=== PATIENT | female | born 1960 | race Caucasian/White ===

== ENCOUNTER → 2017-08-19 | Outpatient (CLI) | payer SELFPAY ==
[~2017-08-19] MED LIST: ATARAX25 MG PO; CIPROFLOXACIN500 MG PO; PAROXETINE20 MG PO; PREDNISONE20 MG PO; PRILOSEC20 M1 PO; VICODIN ES 7501 TAB PO
== END | disposition home or self-care (01) ==
LOC: ORTHO 00:49
DX: M25.562 Pain in left knee (principal)

== ENCOUNTER → 2017-09-10 | Outpatient (CLI) | payer BC | END | disposition home or self-care (01) | LOC: ORTHO 03:24 | DX: M16.0 Bilateral primary osteoarthritis of hip (principal); E11.9 Type 2 diabetes mellitus without complications ==

== ENCOUNTER 2018-04-22 20:13 | Emergency (ER) | payer BC ==
[~2018-04-22] VITALS: Wt 90.7 kg
[2018-04-22 20:56] LABS: BASO % 0.4 % (0.0-1.0); HEMATOCRIT 40.8 % (37.0-47.0); LYMPH # 2.2 10*3/uL (1.3-4.4); LYMPH % 19.9 % (27.0-41.0); MEAN CELL VOLUME 92.5 fl (81.0-99.0); MEAN CORPUSCULAR HGB 29.5 pg (27.0-31.0); MEAN CORPUSCULAR HGB CONC 31.9 g/dl (33.0-37.0); MEAN PLATELET VOLUME 10.3 fl (9.6-12.3); MONO # 0.6 10*3/uL (0.1-1.0); MONO % 5.4 % (3.0-9.0); NEUT # 8.3 10*3/uL (2.3-7.9); NEUT % 73.9 % (47.0-73.0); PLATELET COUNT AUTOMATED 266 10*3/uL (130-400); RED BLOOD COUNT 4.41 10*6/uL (4.10-5.10); RED CELL DISTRI WIDTH 13.1 % (0-14.5); WHITE BLOOD COUNT 11.2 10*3/uL (4.8-10.8)
[2018-04-22 21:10] LABS: ALBUMIN 3.6 gm/dl (3.1-4.5); ALKALINE PHOSPHATASE 97 U/L (45-117); BUN 19 mg/dl (7-24); CHLORIDE 107 mmol/L (98-107); CREATININE 1.07 mg/dL (0.55-1.02); SGOT/AST 22 IU/L (3-35); SGPT/ALT 23 U/L (12-78); SODIUM 143 mmol/L (136-145); TOTAL PROTEIN 7.1 gm/dL (6.4-8.2)
[2018-04-22 21:47] LABS: BILIRUBIN NEGATIVE (NEGATIVE); BLOOD 3+ (NEGATIVE); CLARITY SL CLOUDY (CLEAR); COLOR YELLOW (YELLOW); GLUCOSE NEGATIVE (NEGATIVE); KETONE NEGATIVE (NEGATIVE); LEUKO ESTERASE NEGATIVE (NEGATIVE); NITRITE NEGATIVE (NEGATIVE); UROBILINOGEN 0.2 E.U./dl (0.2-1.0)
[2018-04-22 21:52] LABS: EPITHELIAL CELLS 0-2; RBC 31-40 rbc/hpf (0-2); WBC 0-2 wbc/hpf (0-5)
[2018-04-22] MEDS ORDERED: NORCO 5-325 TA1 EACH PO (22:10)
== END 2018-04-22 22:20 | disposition home or self-care (01) ==
LOC: ED 20:13
PROVIDERS: Physician Assistant
DX: N20.0 Calculus of kidney (principal); N23 Unspecified renal colic; R19.7 Diarrhea, unspecified; Z90.49 Acquired absence of other specified parts of digestive tract; Z98.890 Other specified postprocedural states; Z79.899 Other long term (current) drug therapy

== ENCOUNTER → 2018-07-20 | Outpatient (CLI) | payer BC ==
[~2018-07-20] MED LIST changes: +NORCO 5-325 TA1 EACH PO
== END | disposition home or self-care (01) ==
LOC: RAD 13:19
DX: M19.011 Primary osteoarthritis, right shoulder (principal)

== ENCOUNTER → 2018-07-26 | Outpatient (CLI) | payer BC | END | disposition home or self-care (01) | LOC: RAD 10:25 | DX: M54.2 Cervicalgia (principal) ==

== ENCOUNTER 2018-08-31 15:57 | Emergency (ER) | payer BC ==
[~2018-08-31] VITALS: Ht 149.8 cm; Wt 93.0 kg
== END 2018-08-31 17:45 | disposition home or self-care (01) ==
LOC: ED 15:57
DX: S90.32XA Contusion of left foot, initial encounter (principal); Z79.899 Other long term (current) drug therapy; W54.1XXA Struck by dog, initial encounter; Y93.89 Activity, other specified; Y92.89 Other specified places as the place of occurrence of the external cause; Y99.8 Other external cause status

== ENCOUNTER → 2018-09-01 | Outpatient (CLI) | payer BC | END | disposition home or self-care (01) | LOC: MRI 08:57 | DX: M24.111 Other articular cartilage disorders, right shoulder (principal) ==

== ENCOUNTER → 2018-11-16 | Outpatient (CLI) | payer BC ==
[~2018-11-16] MED LIST changes: +ASPIRIN ADULT L81 M1 PO; +CEREFOLIN CAPL1 EACH PO; +GLUCOPHAGE500 M1 PO; +MOBIC15 MG PO; +MULTIPLE VITAM1 EAC1 PO; +OMEGA 3 500 SO1 EACH PO; +PERCOCET 5-3251 EACH PO; +TESSALON PERLE100 MG PO; +VITAMIN D35000 UNIT/ PO; +ZANTAC 150150 MG PO; +ZOFRAN4 MG PO
[2018-11-16 14:25] LABS: BILIRUBIN NEGATIVE (NEGATIVE); BLOOD 3+ (NEGATIVE); CLARITY SL CLOUDY (CLEAR); COLOR YELLOW (YELLOW); GLUCOSE NEGATIVE (NEGATIVE); KETONE NEGATIVE (NEGATIVE); LEUKO ESTERASE NEGATIVE (NEGATIVE); NITRITE NEGATIVE (NEGATIVE); PH 5.5 (5.0-9.0); SPECIFIC GRAVITY 1.025 (1.005-1.030); UROBILINOGEN 0.2 E.U./dl (0.2-1.0)
[2018-11-16 14:49] LABS: RBC TNTC rbc/hpf (0-2)
[2018-11-16 14:50] LABS: BACTERIA 2+
== END | disposition home or self-care (01) ==
LOC: LAB 14:08
PROVIDERS: Orthopaedic Surgery
DX: R89.9 Unspecified abnormal finding in specimens from other organs, systems and tissues (principal)

== ENCOUNTER → 2018-11-25 | Day surgery (SDC) | payer BC ==
[2018-11-15 12:40] VITALS: BP 168/89
[~2018-11-25] VITALS: Ht 149.8 cm; Wt 97.5 kg
[2018-11-25] VITALS (9 sets, daily range): BP systolic 105–146; BP diastolic 61–83
== END ==
LOC: SDC 11-15 12:30
DX: M75.101 Unspecified rotator cuff tear or rupture of right shoulder, not specified as traumatic (principal)

== ENCOUNTER → 2018-11-25 | Day surgery (SDC) | payer BC ==
[2018-11-15 13:38] LABS: BILIRUBIN 1+ (NEGATIVE); BLOOD 3+ (NEGATIVE); CLARITY CLOUDY (CLEAR); COLOR YELLOW (YELLOW); GLUCOSE NEGATIVE (NEGATIVE); KETONE NEGATIVE (NEGATIVE); LEUKO ESTERASE NEGATIVE (NEGATIVE); NITRITE NEGATIVE (NEGATIVE); SPECIFIC GRAVITY >= 1.030 (1.005-1.030); UROBILINOGEN 0.2 E.U./dl (0.2-1.0)
[2018-11-15 13:46] LABS: BASO # 0.1 10*3/uL (0.0-0.1); BASO % 0.6 % (0.0-1.0); HEMATOCRIT 42.8 % (37.0-47.0); HEMOGLOBIN 13.5 g/dl (12.0-16.0); LYMPH # 3.1 10*3/uL (1.3-4.4); MEAN CELL VOLUME 92.8 fl (81.0-99.0); MEAN CORPUSCULAR HGB 29.3 pg (27.0-31.0); MEAN CORPUSCULAR HGB CONC 31.5 g/dl (33.0-37.0); MEAN PLATELET VOLUME 10.4 fl (9.6-12.3); MONO # 0.7 10*3/uL (0.1-1.0); MONO % 7.5 % (3.0-9.0); NEUT % 56.5 % (47.0-73.0); PLATELET COUNT AUTOMATED 288 10*3/uL (130-400); RED BLOOD COUNT 4.61 10*6/uL (4.10-5.10); RED CELL DISTRI WIDTH 13.3 % (0-14.5); WHITE BLOOD COUNT 8.9 10*3/uL (4.8-10.8)
[2018-11-15 13:51] LABS: BACTERIA 3+; RBC TNTC rbc/hpf (0-2)
[2018-11-15 14:06] LABS: ALBUMIN 3.6 gm/dl (3.1-4.5); ALKALINE PHOSPHATASE 112 U/L (45-117); BUN 22 mg/dl (7-24); CHLORIDE 104 mmol/L (98-107); POTASSIUM 3.8 mmol/L (3.5-5.1); SGOT/AST 17 IU/L (3-35); SGPT/ALT 24 U/L (12-78); SODIUM 140 mmol/L (136-145); TOTAL PROTEIN 8.2 gm/dL (6.4-8.2)
--- NOTE | ~2018-11-25 | O ---
[place], [place] OPERATIVE NOTE NAME: SALLIE BAÑUELOS UNIT #: [id number] ROOM: DOCTOR: ZENIA SANTOS DO BIRTHDATE: [birth year] DOS: 11/25/2018 PREOPERATIVE DIAGNOSES: Right shoulder massive rotator cuff tear, acromioclavicular joint arthritis and impingement. POSTOPERATIVE DIAGNOSES: Right shoulder massive rotator cuff tear, acromioclavicular joint arthritis and impingement. OPERATIVE PROCEDURES: Right shoulder open repair of massive rotator cuff tear with allograft along with Myranda procedure, subacromial decompression. SURGEON: Zenia Santos DO. TRACK SUPERINTENDENT: Tera in [facility]. ANESTHESIA: NORIS Us, interscalene block and general with endotracheal intubation. INDICATIONS: The patient is a 58-year-old female with a history of pain and disability about the right shoulder, unrelieved with conservative care. MRI indicated a massive rotator cuff tear with retraction of 4 cm full thickness supraspinatus and infraspinatus manner. The risks and benefits of the procedure were explained to the patient preoperatively. Preoperative labs and x-rays were obtained. PROCEDURE: The right shoulder was marked in the holding room. An interscalene block was performed by Anesthesia. The patient was brought to the operative suite. The patient was placed supine on the shoulder table. A general anesthetic with endotracheal intubation was performed. The patient received Ancef 2 grams IV piggyback. The patient was placed in a modified beach chair position. Timeout was performed. The right upper extremity and shoulder were prepped and draped in the usual orthopedic manner. The incision was planned from the anterior acromion to the coracoid process and marked with a marking pen. The area was injected with Marcaine 0.5% with epinephrine. Incision was made sharply with a scalpel. Subcutaneous tissue was spread down to the level of the deltoid fascia. Deltoid fascia was divided along its fibers. The superior portion of the deltoid was removed from the acromion. The bursa was debrided. The humeral head was identified and uncovered with lack of rotator cuff. Attempt to retrieve the rotator cuff was difficult due to retraction. An osteotome was used to remove the anterior portion of the acromion. The distal clavicle was exposed using electrocautery. An oscillating saw was used to remove the distal 1 cm of the clavicle. There is noted to be significant degenerative changes here. A handheld rasp was used to smooth the undersurface of the acromion and the clavicle. The area was copiously irrigated with normal saline. The retracted torn supraspinatus and infraspinatus tendons were identified. An [place], [place] OPERATIVE NOTE NAME: SALLIE BAÑUELOS UNIT #: [id number] ROOM: DOCTOR: ZENIA SANTOS DO BIRTHDATE: [birth year] [facility] instrument was used to grasp the scarred tissue and free it from the undersurface of the acromion and bring this forward. When this was released, 2 Arthrotec SwiveLock bone anchors were placed at the junction of the articular surface using the usual punch followed by advancement of the anchor by hand. The Scorpio passer was then used to place through the torn portions of the rotator cuff both supraspinatus and infraspinatus and the FiberTape was advanced. This was held with a hemostat. The stay sutures were then passed through a free needle and used to reinforce the portions of supra and infraspinatus in a horizontal mattress suture fashion. These were also held with a hemostat. The LifeNet decellularized dermis allograph was then cut to cover the repair. The distance between the medially placed bone anchors was measured and reproduced on the allograft. Each FiberTape combination was placed through a wireless needle and brought through the allograft. The stay sutures were placed through the allograft as well. The positioning was evaluated and found to be adequate. The FiberTape combinations were released and placed through the SwiveLock in SpeedBridge fashion. These were then advanced laterally and placed using the usual fashion with the bone punch followed by advancement of the SwiveLock by hand and evaluation as SpeedBridge was tightened over the allograft. The area was copiously irrigated with normal saline. The repair was evaluated and found to be adequate. The acromioclavicular capsule was repaired with the #2 FiberWire in a [id number] fashion. The proximal deltoid fascia was also repaired in a similar fashion. The remaining deltoid fascia was repaired with a 2-0 Vicryl in a [id number] fashion. The closure was completed with a subcutaneous 3-0 Vicryl followed by skin dakota. The area was then injected with Marcaine 0.5% with epinephrine. The incision was covered with Adaptic, 4 x 4s, and ABDs followed by Tegaderm. The patient was placed in a sling and swathe with an abduction pillow. The anesthetic was reversed. The patient was extubated and taken to the recovery room in satisfactory condition. Sponge and needle count correct. ESTIMATED BLOOD LOSS: 200 mL. SPECIMENS: Distal clavicle. DRAINS: None. PACKING: None. COMPLICATIONS: None. IMPLANTS: Four Arthrex SpeedBridge implants BioComposite SwiveLock were placed and the LifeNet decellularized dermis allograph. [place], [place] OPERATIVE NOTE NAME: SALLIE BAÑUELOS UNIT #: [id number] ROOM: DOCTOR: ZENIA SANTOS DO BIRTHDATE: [birth year] ZENIA SANTOS DO CM:OPRECORD:OPERATIVE NOTE 49 54 ZENIA SANTOS DO 11/25/182055 interface
--- NOTE | ~2018-11-25 | EKG ---
[place], [place] ELECTROCARDIOGRAM REPORT NAME: SALLIE BAÑUELOS UNIT #: [id number] ROOM: DOCTOR: LOTTIE DRAFT REPORT BIRTHDATE: [birth year] [facility] Test Date: 2018-11-15 Test Time: 13:42:37 Pat Name: SALLIE BAÑUELOS Department: Room: Gender: F [employer] Work[employer]: : 1960 Requested By: ZENIA WARREN Order Number: [id number] Reading MD: Measurements Intervals [place] Rate: 102 P: 19 RI: 133 QRS: -29 QRSD: 99 T: 47 QT: 361 QTc: 471 Interpretive Statements Sinus tachycardia Borderline left axis deviation Abnormal R-wave progression, late transition No previous ECG available for comparison CM:EKGRPT:ELECTROCARDIOGRAM REPORT 1342 [id number] ZENIA GARCIA DRAFT REPORT ZENIA WARREN DO
== END | disposition home or self-care (01) ==
LOC: CANPRECLI → LAB 11-15 01:17 → ORTHO 11-15 01:17 → EDSTATUS 11-15 14:09 → ORTHO 11-15 21:15 → SDC 03:01
PROVIDERS: Orthopaedic Surgery
DX: M75.121 Complete rotator cuff tear or rupture of right shoulder, not specified as traumatic (principal); M19.011 Primary osteoarthritis, right shoulder; M75.41 Impingement syndrome of right shoulder; F41.9 Anxiety disorder, unspecified; Z83.3 Family history of diabetes mellitus; Z98.890 Other specified postprocedural states; Z90.49 Acquired absence of other specified parts of digestive tract; Z79.899 Other long term (current) drug therapy

== ENCOUNTER → 2019-12-13 | Outpatient (CLI) | payer BC | END | disposition home or self-care (01) | LOC: RAD 15:03 | DX: M19.011 Primary osteoarthritis, right shoulder (principal) ==

== ENCOUNTER → 2019-12-26 | Outpatient (CLI) | payer BC | END | disposition home or self-care (01) | LOC: MRI 09:41 | DX: M75.111 Incomplete rotator cuff tear or rupture of right shoulder, not specified as traumatic (principal); M62.511 Muscle wasting and atrophy, not elsewhere classified, right shoulder ==